=== PATIENT | female | born 1990 | race Caucasian/White ===

== ENCOUNTER 2017-09-22 17:49 | Emergency (ER) | payer BC ==
[2017-09-22 18:03] VITALS: RESP 16; TEMP 98.1
--- NOTE | 2017-09-22 18:23 | EDPHY ---
H & P Stated Complaint: Past 3 nights wakes up with "heart racing" and "not breathing " Time Seen by Provider: 09/22/17 18:21 HPI/ROS: CHIEF COMPLAINT: Heart palpitations and shortness of breath at night HISTORY OF PRESENT ILLNESS: The patient is a 26 y/o female complaining of heart palpitations and shortness of breath for the past 3 nights. She wakes up feeling short of breath and feeling like "someone is standing on her chest". These symptoms last between 30 minutes - 1 hour. These symptoms occur only at night. By the time her heart slows down, it feels like it is going to slow. She went to urgent care today, they advised her to come to the ED. She has a history of panic attacks and anxiety, but does not feel more anxious than usual. Denies history of sleep apnea, PE's, DVT's, caffeine use, or symptoms while exercising. Denies taking medication for anxiety. No fever, chills, vomiting, diarrhea, urinary complaints , headache, lightheadedness. REVIEW OF SYSTEMS: Aside from elements discussed in the HPI, a comprehensive 10-point review of systems was reviewed and is negative. PAST MEDICAL HISTORY: Heart arrhythmias, anxiety SOCIAL HISTORY: Mother at bedside, no tobacco or drug use, occasional alcohol use. VITAL SIGNS: BP: 136/95, others reviewed by me GENERAL: Well-developed, well-nourished, resting comfortably in no respiratory distress. HEENT: Atraumatic. Eyes: No icterus, no injection. Mouth: moist mucous membranes. No erythema or lesions. Neck: supple with no adenopathy. LUNGS: Clear to auscultation bilaterally, no wheezes, rhonchi or rales. CARDIAC: Sinus arrhythmia to auscultation, no rubs, murmurs or gallops. ABDOMEN: Soft, nontender, nondistended, bowel sounds normal. BACK: No CVA tenderness. EXTREMITIES: No trauma. No edema. Range of motion is normal throughout. NEURO: Alert and oriented, grossly nonfocal. SKIN: Warm and dry, no rash. PSYCHIATRIC: Normal mentation, no agitation. Portions of this note were transcribed by a nuclear medical tech. I personally performed a history, physical exam, medical decision making, and confirmed accuracy of information the transcribed note. - Personal History LMP (Females 10-55): Extended Cycle BCP/Inj Current Tetanus Diphtheria and Acellular Pertussis (TDAP): Yes - Medical/Surgical History Hx Cardiac Disease: Yes Other PMH: hx heart palpitations - Social History Smoking Status: Never smoked Constitutional: Initial Vital Signs Temperature (C) 36.7 C 09/22/17 18:00 Heart Rate 92 09/22/17 18:00 Respiratory Rate 16 09/22/17 18:00 Blood Pressure 136/95 H 09/22/17 18:00 O2 Sat (%) 100 09/22/17 18:00 O2 Delivery Mode Room Air Allergies/Adverse Reactions: acetaminophen [From Percocet] Allergy (Mild, Verified 09/22/17 18:00) GI oxycodone [From Percocet] Allergy (Mild, Verified 09/22/17 18:00) GI Home Medications: Medication Instructions Recorded Control Pills 09/22/17 Medical Decision Making - Diagnostics EKG Interpretation: 12-LEAD EKG: Please see the full report in [facility]. My interpretation: Sinus arrhythmia with a rate between 55-77 Imaging: I viewed and interpreted images myself ED Course/Re-evaluation: The patient is a 26 y/o female with a history of anxiety and panic attacks presenting with heart palpitations and dyspnea that wakes her up in the middle of the night. On exam she has a sinus arrhythmia. 191: EKG interpreted as sinus arrhythmia. 1928: Patient has a normal chest x-ray and a negative D-dimer. 2015: Reassessed patient and discussed imaging and laboratory findings. I have advised her to have an outpatient visit with her PCP and [facility]. Return precautions provided; patient is comfortable with this plan. Differential Diagnosis: diff dx considered included panic attack, anxiety, electrolyte abnormality, SVT , atrial fibrillation, atrial flutter, drug or alcohol effects, drug or alcohol withdrawl. - Data Points Laboratory Results: Laboratory Results 09/22/17 19:00 09/22/17 19:00 Medications Given: Discontinued Medications Sodium Chloride (Ns) 1,000 mls @ 0 mls/hr IV EDNOW ONE; Wide Open PRN Reason: Protocol Stop: 09/22/17 18:34 Last Admin: 09/22/17 19:00 Dose: 1,000 mls Departure - Departure Disposition: Home, Routine, Self-Care Clinical Impression: Palpitations, Anxiety Condition: Good Instructions: Palpitations (ED), Anxiety (ED) Additional Instructions: Follow up with a primary care provider or with [facility] in the next week. You should discuss having a halter monitor to monitor your heart palpitations. You been referred to Dr Shrestha. She is on-call for us for unassigned patients. You may also follow up with a primary care physician/internal medicine physician in the [facility]. It is okay to use a small amount of Benadryl at night. Avoid caffeine. Return to the Emergency Department for fever, chest pain, shortness of breath, increasing pain or other worsening of condition. Your evaluation in the emergency department included negative troponin, normal D -dimer, normal chemistries, normal chest x-ray, and normal EKG. Referrals: ARTEMIO Arriola,. [Primary Care Provider] - As per Instructions Lyndon Shrestha MD [Medical Doctor] - As per Instructions Travon Murphy MD [Medical Doctor] - As per Instructions Report Scribed for: Joana Winters Report Scribed by: Olivia Burt Date of Report: 09/22/17 Time of Report: 18:21
[2017-09-22] MEDS ORDERED: NS 1,000 ML IV ONE (18:33)
[2017-09-22 19:08] LABS: % IMMATURE GRANULYOCYTES 0.2 % (0.0-1.1); ABSOLUTE IMMATURE GRANULOCYTES 0.01 10^3/uL (0.00-0.10); ADD DIFF? NO; ADD MORPH? NO; ADD SCAN? NO; ATYPICAL LYMPHOCYTE FLAG 20 (0-99); FRAGMENT RBC FLAG 0 (0-99); HEMATOCRIT 40.7 % (38.0-47.0); HEMOGLOBIN 14.5 g/dL (12.6-16.3); LEFT SHIFT FLG 0 (0-99); LIPEMIA HEMOLYSIS FLAG 90 (0-99); MEAN CELL HEMOGLOBIN 31.5 pg (27.9-34.1); MEAN CELL HEMOGLOBIN CONCENTR. 35.6 g/dL (32.4-36.7); MEAN CELL VOLUME 88.3 fL (81.5-99.8); MEAN PLATELET VOLUME 9.9 fL (8.7-11.7); PLATELET CLUMPS FLAG 0 (0-99); PLATELET COUNT 234 10^3/uL (150-400); RED BLOOD CELL COUNT 4.61 10^6/uL (4.18-5.33); RED CELL DISTRIBUTION WIDTH 12.1 % (11.5-15.2)
--- NOTE | 2017-09-22 19:15 | CPEKG ---
Heart Rate: 63 RR Interval: 952 P-R Interval: 120 QRSD Interval: 82 QT Interval: 428 QTC Interval: 439 P [place]: -11 QRS [place]: 81 T Wave [place]: 52 EKG Severity - OTHERWISE NORMAL ECG - EKG Impression: SINUS ARRHYTHMIA, RATE 55-77 Electronically Signed By: Joana Winters 22-Sep-2017 23:13:27
[2017-09-22 19:23] LABS: ANION GAP 12 mEq/L (8-16); CALCIUM 9.7 mg/dL (8.5-10.4); CARBON DIOXIDE 24 mEq/l (22-31); CHLORIDE 104 mEq/L (97-110); CREATININE 0.7 mg/dL (0.6-1.0); GLOMERULAR FILTRATION RATE > 60; GLUCOSE 87 mg/dL (70-100); SODIUM 140 mEq/L (134-144)
[2017-09-22 19:35] LABS: TROPONIN I < 0.012 ng/mL (0.000-0.034)
[2017-09-22 20:35] VITALS: BP 122/75; PULSE 87; O2SAT 97
== END 2017-09-22 20:35 | disposition home or self-care (01) ==
LOC: EDSEX 17:49
DX: F41.9 Anxiety disorder, unspecified (principal)